=== PATIENT | female | born 1970 | race Caucasian/White ===

== ENCOUNTER 2021-08-10 14:54 | Emergency (ER) | payer OTHER ==
[~2021-08-10 14:54] MED LIST: FLEXERIL5 MG PO; MOTRIN600 MG PO; PREDNISONE 20MG20 MG PO; ROBAXIN750 MG PO
[2021-08-10 16:20] LABS: BASOPHIL 0.8 % (0-2); EOSINOPHIL 2.4 % (0-5); HCT 41.2 % (37.0-47.0); HGB 13.7 g/dl (12.5-16.0); MCH 31.2 pg (25.0-31.0); MCHC 33.3 g/dL (32.0-36.0); MCV 93.8 fL (78.0-100.0); MONOCYTE 7.5 % (0-12); MPV 10.7 fL (6.0-9.5); NEUTROPHIL 46.3 % (41-80); NRBC 0; PLT 143 K/uL (150-400); RBC 4.39 M/uL (4.20-5.40); RDW 13.1 % (11.5-14.0); WBC 3.7 K/uL (4.0-10.5)
[2021-08-10 16:38] LABS: ALBUMIN 3.8 g/dL (3.4-5.0); BILIRUBIN - TOTAL 0.4 mg/dL (0.2-1.0); BUN/CREAT RATIO (CALC) 12.6 RATIO; CREATININE 1.03 mg/dL (0.51-0.95); GLOBULIN (CALCULATION) 3.8 g/dL; POTASSIUM 3.9 mmol/L (3.5-5.1); TOTAL PROTEIN 7.6 g/dL (6.4-8.2)
[2021-08-10] MEDS ORDERED: ZOFRAN4 M1 PO ×2 (17:11→17:17)
[2021-08-10] MEDS ORDERED: VENTOLIN HFA18 GM INH ×2 (17:11→17:17)
== END 2021-08-10 19:30 | disposition home or self-care (01) ==
LOC: FER 14:54
PROVIDERS: Emergency Medicine
DX: U07.1 COVID-19 (principal); I10 Essential (primary) hypertension; J44.9 Chronic obstructive pulmonary disease, unspecified; Z23 Encounter for immunization
CPT/HCPCS: 36415; 80053; 85025; M0243; Q0244

== ENCOUNTER 2021-10-21 16:46 | Emergency (ER) | payer OTHER ==
[~2021-10-21 16:46] MED LIST changes: +VENTOLIN HFA18 GM INH; +ZOFRAN4 M1 PO
[2021-10-21 18:07] LABS: BASOPHIL 1.1 % (0-2); EOSINOPHIL 9.9 % (0-5); HCT 41.6 % (37.0-47.0); LYMPHOCYTE 31.3 % (15-48); MCHC 33.7 g/dL (32.0-36.0); MPV 10.8 fL (6.0-9.5); NEUTROPHIL 50.5 % (41-80); NRBC 0; PLT 203 K/uL (150-400); RBC 4.38 M/uL (4.20-5.40); RDW 14.1 % (11.5-14.0); WBC 8.3 K/uL (4.0-10.5)
[2021-10-21 18:31] LABS: BUN/CREAT RATIO (CALC) 10.6 RATIO; CREATININE 1.42 mg/dL (0.51-0.95); POTASSIUM 3.6 mmol/L (3.5-5.1)
[2021-10-21] MEDS ORDERED: FIORICET1 EACH PO (19:14)
== END 2021-10-21 19:20 | disposition home or self-care (01) ==
LOC: FER 16:46
PROVIDERS: Nurse Practitioner Family
DX: G43.909 Migraine, unspecified, not intractable, without status migrainosus (principal); I10 Essential (primary) hypertension; K21.9 Gastro-esophageal reflux disease without esophagitis; Z20.822 Contact with and (suspected) exposure to COVID-19; Z87.891 Personal history of nicotine dependence; Z79.899 Other long term (current) drug therapy
CPT/HCPCS: 36415; 70450; 80048; 85025; J1100; J1885; J2405; J7030

== ENCOUNTER 2022-02-19 12:36 | Emergency (ER) | payer OTHER ==
[~2022-02-19 12:36] MED LIST changes: +FIORICET1 EACH PO
[2022-02-19 13:23] LABS: BASOPHIL 1.2 % (0-2); EOSINOPHIL 5.3 % (0-5); HCT 40.3 % (37.0-47.0); HGB 13.3 g/dl (12.5-16.0); MCH 31.5 pg (25.0-31.0); MCV 95.5 fL (78.0-100.0); MONOCYTE 6.2 % (0-12); MPV 10.9 fL (6.0-9.5); NRBC 0; PLT 216 K/uL (150-400); RBC 4.22 M/uL (4.20-5.40); RDW 13.6 % (11.5-14.0); WBC 7.4 K/uL (4.0-10.5)
[2022-02-19 13:26] LABS: INR 1.01 (0.9-1.2); PROTHROMBIN TIME 12.7 SECONDS (11.8-13.4); PTT 28.8 SECONDS (24.4-34.7)
[2022-02-19 13:53] LABS: ALBUMIN 3.6 g/dL (3.4-5.0); BILIRUBIN - TOTAL 0.4 mg/dL (0.2-1.0); BUN/CREAT RATIO (CALC) 11.4 RATIO; CREATININE 1.14 mg/dL (0.51-0.95); POTASSIUM 3.6 mmol/L (3.5-5.1); TOTAL PROTEIN 7.6 g/dL (6.4-8.2)
[2022-02-19 15:32] LABS: BILIRUBIN NEGATIVE (NEGATIVE); BLOOD TRACE-INTACT Ery/uL (NEGATIVE); CLARITY CLEAR (CLEAR); COLOR YELLOW (YELLOW); GLUCOSE (U) NORMAL (NORMAL); LEUKOCYTES NEGATIVE Leu/uL (NEGATIVE); NITRITE NEGATIVE (NEGATIVE); PROTEIN NEGATIVE (NEGATIVE); SPECIFIC GRAVITY <=1.005 (1.001-1.030); UROBILINOGEN 0.2 mg/dL (0.2-1.0)
[2022-02-19 15:44] LABS: URINARY WBC RARE
[2022-02-19 15:45] LABS: BACTERIA 1+
[2022-02-19] MEDS ORDERED: NORCO 5-325 TA1 EACH PO (16:59)
[2022-02-19] MEDS ORDERED: ACIPHEX20 MG PO (16:59)
[2022-02-19] MEDS ORDERED: CARAFATE S500 MG/TSP PO (16:59)
== END 2022-02-19 17:23 | disposition home or self-care (01) ==
LOC: FER 12:36
PROVIDERS: Emergency Medicine
DX: R07.89 Other chest pain (principal); K22.4 Dyskinesia of esophagus; I10 Essential (primary) hypertension; J44.9 Chronic obstructive pulmonary disease, unspecified; Z28.310 Unvaccinated for COVID-19; Z79.899 Other long term (current) drug therapy
CPT/HCPCS: 36415; 71045; 80053; 81001; 84484; 85025; 85610; 85730; 93005; J1170; J2405; J7030

== ENCOUNTER 2022-03-02 13:36 | Emergency (ER) | payer OTHER ==
[~2022-03-02 13:36] MED LIST changes: +ACIPHEX20 MG PO; +CARAFATE S500 MG/TSP PO; +NORCO 5-325 TA1 EACH PO
[2022-03-02] MEDS ORDERED: PREDNISONE 20MG20 MG PO (15:35)
[2022-03-02] MEDS ORDERED: NORCO 5-325 TA1 EACH PO (15:36)
== END 2022-03-02 15:39 | disposition home or self-care (01) ==
LOC: FER 13:36
DX: S86.912A Strain of unspecified muscle(s) and tendon(s) at lower leg level, left leg, initial encounter (principal); Z28.310 Unvaccinated for COVID-19
CPT/HCPCS: 73564